=== PATIENT | male | born 1955 | race Hispanic/Latino ===

== ENCOUNTER 2022-10-25 14:33 | Emergency (ER) | payer MEDICARE, OTHER ==
[~2022-10-25] VITALS: Ht 170.2 cm; Wt 88.5 kg
[2022-10-25 15:24] VITALS: BP 142/74
[2022-10-25] MEDS ORDERED: CEFAZOLIN SODIUM 1 GM VIAL IM SCH (17:00)
[2022-10-25] MEDS ORDERED: TETANUS/DIPHTHERIA TOXOID [ADULT] 0.5 ML VIAL IM ONE (17:00)
== END 2022-10-25 18:06 | disposition home or self-care (01) ==
LOC: EDH 14:33
DX: S40.852A Superficial foreign body of left upper arm, initial encounter (principal); E78.00 Pure hypercholesterolemia, unspecified; F41.9 Anxiety disorder, unspecified; F32.A Depression, unspecified; W45.8XXA Other foreign body or object entering through skin, initial encounter; Y93.89 Activity, other specified; Y92.89 Other specified places as the place of occurrence of the external cause; Y99.8 Other external cause status
CPT/HCPCS: 99284; 90714; 73090; 96372; 90471; 12002; J0690